=== PATIENT | male | born 1970 | race Asian ===

== ENCOUNTER → 2020-12-15 | Outpatient (CLI) | payer BC ==
[~2020-12-15] MED LIST: ADDE10 PO; BUPR100SR PO; ESOM20CA31 PO; LAMO100 PO; VORT10TA PO
== END | disposition home or self-care (01) ==
LOC: RADMN 11:00
PROVIDERS: ATTEND Internal Medicine Critical Care Medicine
DX: J34.1 Cyst and mucocele of nose and nasal sinus (principal); J34.2 Deviated nasal septum; J34.89 Other specified disorders of nose and nasal sinuses; J01.90 Acute sinusitis, unspecified; I27.1 Kyphoscoliotic heart disease
CPT/HCPCS: 70486; 93306